=== PATIENT | female | born 1985 | race Caucasian/White ===

== ENCOUNTER 2023-12-06 12:22 | Emergency (ER) | payer MEDICARE, MEDICAID ==
[~2023-12-06] VITALS: Ht 162.6 cm; Wt 57.0 kg
[2023-12-06 12:25] VITALS: O2SAT 100
[2023-12-06] MEDS: KETOROLAC 15MG/ML VIAL IM ONE (12:52)
[2023-12-06] MEDS: CYCLOBENZAPRINE 10MG TABLET PO ONE (12:53)
[2023-12-06] MEDS ORDERED: NAPR-681 MT (13:59)
[2023-12-06 14:20] VITALS: BP 135/77; PULSE 60; RESP 18; TEMP 98.2
== END 2023-12-06 14:38 | disposition home or self-care (01) ==
LOC: ER 13:13
DX: M79.602 Pain in left arm (principal); M54.2 Cervicalgia; V49.9XXA Car occupant (driver) (passenger) injured in unspecified traffic accident, initial encounter; Y93.89 Activity, other specified; Y92.89 Other specified places as the place of occurrence of the external cause; Y99.8 Other external cause status
CPT/HCPCS: 99284; 81025; 73060; 73090; 96372; J1885